=== PATIENT | female | born 1960 | race Caucasian/White ===

== ENCOUNTER 2017-12-31 17:30 | Emergency (ER) | payer SELFPAY ==
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
--- NOTE | 2018-01-01 08:04 | Diagnostic Imaging Report ---
Exam: Thoracic spine. HISTORY: Trauma. Findings: Frontal lateral views of thoracic spine reviewed. The study demonstrates mild scoliotic convexity of distal thoracic spine to the right. The vertebral bodies of normal height with preserved intervertebral disc spaces. No prevertebral soft tissue swelling is noted. The pedicles are intact. IMPRESSION mild scoliotic convexity of distal thoracic spine No evidence of fracture or dislocation.
--- NOTE | 2018-01-01 08:05 | Diagnostic Imaging Report ---
Exam: Cervical spine x-ray HISTORY: Trauma Findings: Multiple views of cervical spine reviewed. The study demonstrates degenerative changes of the C5-C6 C6-C7 vertebral bodies with narrowing of the intravertebral disc spaces. Mild ascitic spurring at C6-C7 appreciated. There is no evidence of fracture dislocation subluxation. The odontoid process is intact. The posterior elements are normal. IMPRESSION mild degenerative changes lower cervical spine.
== END 2017-12-31 20:00 | disposition home or self-care (01) ==
LOC: ER 17:30
DX: S16.1XXA Strain of muscle, fascia and tendon at neck level, initial encounter (principal); S29.012A Strain of muscle and tendon of back wall of thorax, initial encounter; X58.XXXA Exposure to other specified factors, initial encounter; Y93.9 Activity, unspecified; Y92.89 Other specified places as the place of occurrence of the external cause; Y99.8 Other external cause status
CPT/HCPCS: 72040-TC; 72072-TC; Z7502